=== PATIENT | female | born 1970 | race African-American/Black ===

== ENCOUNTER 2017-12-06 19:44 | Inpatient (IN) | payer OTHER ==
[~2017-12-06] VITALS: Ht 157.5 cm; Wt 77.1 kg
[2017-12-06 20:00] VITALS: BP 155/84
[2017-12-06 20:44] LABS: BILIRUBIN, URINE NEGATIVE (NEGATIVE); COLOR,URINE PALE YELLOW; GLUCOSE, URINE (UA) NEGATIVE (NEGATIVE); KETONES,URINE NEGATIVE (NEGATIVE); LEUKOCYTE ESTERASE ,URINE NEGATIVE (NEGATIVE); NITRITE,URINE NEGATIVE (NEGATIVE); PH,URINE 6 (4.5-8.0); PROTEIN,URINE NEGATIVE (NEGATIVE); UROBILINOGEN,URINE NORMAL MG/DL (0.0-1.0)
[2017-12-06 20:45] LABS: APPEARANCE,URINE CLEAR
[2017-12-06 20:48] LABS: HEMATOCRIT 19.8 % (37.0-47.0); HEMOGLOBIN 4.8 G/DL (12.0-16.0); MEAN CORPUSCULAR VOLUME 55 FL (80-99); PLATELET COUNT 121 K/UL (150-450); RED BLOOD COUNT 3.57 M/UL (4.20-5.40); RED CELL DISTRIBUTION WIDTH 19.9 % (11.6-14.8); WHITE BLOOD COUNT 6.9 K/UL (4.8-10.8)
[2017-12-06 21:06] LABS: ANION GAP 10 mmol/L (5-15); BLOOD UREA NITROGEN 10 mg/dL (7-18); CALCIUM 8.9 MG/DL (8.5-10.1); CARBON DIOXIDE 24 MMOL/L (21-32); CHLORIDE 105 MMOL/L (98-107); CREATININE 0.7 MG/DL (0.55-1.30); POTASSIUM 3.3 MMOL/L (3.5-5.1); SODIUM 139 MMOL/L (136-145)
[2017-12-06 21:11] LABS: ALANINE AMINOTRANSFERASE < 6 U/L (12-78); ALBUMIN/GLOBULIN RATIO 1.3 (1.0-2.7); ALKALINE PHOSPHATASE 51 U/L (46-116); ASPARTATE AMINO TRANSFERASE 13 U/L (15-37); BILIRUBIN,TOTAL 0.3 MG/DL (0.2-1.0)
--- NOTE | 2017-12-06 22:17 | Emergency Room Report ---
History of Present Illness General Chief Complaint: Abnormal Labs Source: Patient Present Illness HPI Patient is a 47-year-old female sent in by primary care physician after abnormal blood tests. Patient had noted be not been bleeding. She was noted to be anemic by primary care physician. Hemoglobin approximately 4.8 patient not been vomiting. She denies any black or bloody stools. She denies prior history of heavy periods. She states that she had not having any shortness of breath or chest pain. The patient states that she had history of fibroid uterus Allergies: Coded Allergies: No Known Allergies (Unverified , 12/06/17) Patient History Past Medical History: see triage record Last Menstrual Period: 11/13/17 Now: No Reviewed Nursing Documentation: PMH: Agreed, PSxH: Agreed Nursing Documentation-PMH Past Medical History: No History, Except For Hx Hypertension: Yes Review of Systems All Other Systems: negative except mentioned in HPI Physical Exam Vital Signs Date Time Temp Pulse Resp B/P (MAP) Pulse Ox O2 Delivery O2 Flow Rate FiO2 12/06/17 19:54 98.1 90 16 155/84 97 Room Air Sp02 EP Interpretation: reviewed, normal General Appearance: normal inspection, well appearing, no apparent distress, alert Head: atraumatic Eyes: bilateral eye conjunctivae pale ENT: normal ENT inspection, hearing grossly normal, normal voice, uvula midline , moist mucus membranes Neck: normal inspection, full range of motion, supple, no bony tend Respiratory: normal inspection, lungs clear, normal breath sounds, no respiratory distress, no retraction, no wheezing Cardiovascular #1: regular rate, rhythm, no edema Gastrointestinal: normal inspection, normal bowel sounds, non tender, soft, no guarding, no hernia Genitourinary: no CVA tenderness Musculoskeletal: normal inspection, back normal, normal range of motion Neurologic: normal inspection, alert, oriented x3, responsive, 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 Differential diagnosis included was not limited to anemia, urinary tract infection, electrolyte abnormality, hypothyroidism, myocardial infarction, myasthenia gravis, dehydration, among others. Because of complexity of patient's case laboratory testing and imaging studies were ordered. I laboratory studies showed evidence of the continued anemia with hemoglobin 4.8. The patient was noted to have a platelet count of 120s. The patient was noted to have a low MCV there may be some component of iron deficiency however given the patient's a low platelet count and previous low white blood count the patient likely requires more inpatient workup. The patient consented for blood. Dr. Jorge Stearns was contacted for inpatient management due to complexity of medical condition and panel physician. Labs Test 12/06/17 20:30 White Blood Count 6.9 K/UL (4.8-10.8) Red Blood Count 3.57 M/UL (4.20-5.40) Hemoglobin 4.8 G/DL (12.0-16.0) Hematocrit 19.8 % (37.0-47.0) Mean Corpuscular Volume 55 FL (80-99) Mean Corpuscular Hemoglobin 13.5 PG (27.0-31.0) Mean Corpuscular Hemoglobin Concent 24.4 G/DL (32.0-36.0) Red Cell Distribution Width 19.9 % (11.6-14.8) Platelet Count 121 K/UL (150-450) Mean Platelet Volume 5.2 FL (6.5-10.1) Neutrophils (%) (Auto) % (45.0-75.0) Lymphocytes (%) (Auto) % (20.0-45.0) Monocytes (%) (Auto) % (1.0-10.0) Eosinophils (%) (Auto) % (0.0-3.0) Basophils (%) (Auto) % (0.0-2.0) Differential Total Cells Counted 100 Neutrophils % (Manual) 47 % (45-75) Lymphocytes % (Manual) 49 % (20-45) Monocytes % (Manual) 2 % (1-10) Eosinophils % (Manual) 1 % (0-3) Basophils % (Manual) 1 % (0-2) Band Neutrophils 0 % (0-8) Platelet Estimate Decreased Platelet Morphology Normal Polychromasia 2+ Hypochromasia 4+ Anisocytosis 3+ Microcytosis 3+ Prothrombin Time 10.3 SEC (9.30-11.50) Prothromb Time International Ratio 1.0 (0.9-1.1) Activated Partial Thromboplast Time 26 SEC (23-33) Urine Color Pale yellow Urine Appearance Clear Urine pH 6 (4.5-8.0) Urine Specific [place] 1.015 (1.005-1.035) Urine Protein Negative (NEGATIVE) Urine Glucose (UA) Negative (NEGATIVE) Urine Ketones Negative (NEGATIVE) Urine Occult Blood Negative (NEGATIVE) Urine Nitrite Negative (NEGATIVE) Urine Bilirubin Negative (NEGATIVE) Urine Urobilinogen Normal MG/DL (0.0-1.0) Urine Leukocyte Esterase Negative (NEGATIVE) Urine RBC 0-2 /HPF (0 - 2) Urine WBC 0-2 /HPF (0 - 2) Urine Squamous Epithelial Cells Many /LPF (NONE/OCC) Urine Bacteria Few /HPF (NONE) Urine HCG, Qualitative Negative Sodium Level 139 MMOL/L (136-145) Potassium Level 3.3 MMOL/L (3.5-5.1) Chloride Level 105 MMOL/L (98-107) Carbon Dioxide Level 24 MMOL/L (21-32) Anion Gap 10 mmol/L (5-15) Blood Urea Nitrogen 10 mg/dL (7-18) Creatinine 0.7 MG/DL (0.55-1.30) Estimat Glomerular Filtration Rate > 60 mL/min (>60) Glucose Level 91 MG/DL (74-106) Calcium Level 8.9 MG/DL (8.5-10.1) Total Bilirubin 0.3 MG/DL (0.2-1.0) Aspartate Amino Transf (AST/SGOT) 13 U/L (15-37) Alanine Aminotransferase (ALT/SGPT) < 6 U/L (12-78) Alkaline Phosphatase 51 U/L (46-116) Total Protein 7.2 G/DL (6.4-8.2) Albumin 4.0 G/DL (3.4-5.0) Globulin 3.2 g/dL Albumin/Globulin Ratio 1.3 (1.0-2.7) Last Vital Signs Date Time Temp Pulse Resp B/P (MAP) Pulse Ox O2 Delivery O2 Flow Rate FiO2 12/06/17 19:54 98.1 90 16 155/84 97 Room Air Status: improved Disposition: ADMITTED INPATIENT Condition: Serious Referrals: NOT CHOSEN IPA/,REFERRING (PCP) Sorin Mac Dec 06, 2017 22:17
[2017-12-06] MEDS ORDERED: Zolpidem 5mg tab ORAL PRN (22:45)
[2017-12-06] MEDS ORDERED: Morphine Sulfate 2mg/ml Inj IVP PRN (22:45)
[2017-12-06] MEDS ORDERED: Miralax 17gm pkt ORAL PRN (22:45)
[2017-12-06] MEDS ORDERED: Mylanta II UD 30ml ORAL PRN (22:45)
[2017-12-06] MEDS ORDERED: LORazepam Inj 2mg/ml 1ml IV PRN (22:45)
[2017-12-06 23:15] VITALS: BP 169/86
[2017-12-06 23:30] VITALS: BP 169/85
[2017-12-06 23:56] LABS: LACTATE DEHYDROGENASE 140 U/L (81-234)
[2017-12-06] MEDS ORDERED: NKM (23:56)
[2017-12-07] VITALS: BP 152/77
[2017-12-07 00:23] LABS: % IRON SATURATION 10 % (15-50); IRON 48 ug/dL (50-175); TOTAL IRON BINDING CAPACITY 501 ug/dL (250-450)
[2017-12-07 04:00] VITALS: BP 138/78
--- NOTE | 2017-12-07 07:09 | Consultation ---
History of Present Illness General Date patient seen: Dec 07, 2017 Chief Complaint: Abnormal Labs Referring physician: Dr. Stearns Reason for Consultation: inpatient management Present Illness HPI 47-year-old female sent in by primary care physician after abnormal blood tests. Her Hemoglobin approximately 4.8 . She denies any black or bloody stools. She denies prior history of heavy periods. She states that she had not having any shortness of breath or chest pain. The patient states that she had history of fibroid uterus. She is admitted to telemetry for further work up. Allergies: Coded Allergies: No Known Allergies (Unverified , 12/06/17) Medication History Scheduled No Known Medications* (NKM - No Known Medications*), 0 ., (Reported) Patient History Healthcare decision maker Resuscitation status Full Code Advanced Directive on File Review of Systems All Other Systems: negative except mentioned in HPI Physical Exam Physical Exam Narrative General Appearance: WD/WN HEENT: normocephalic, anicteric Respiratory/Chest: chest wall non-tender, lungs clear, normal breath sounds Breasts: no masses Cardiovascular: normal peripheral pulses, regularly irregular Abdomen: normal bowel sounds, soft, non tender Genitourinary: normal external genitalia Skin: no rash Last 24 Hour Vital Signs Date Time Temp Pulse Resp B/P (MAP) Pulse Ox O2 Delivery O2 Flow Rate FiO2 12/07/17 04:00 98.5 84 18 138/78 98 Room Air 12/07/17 04:00 76 12/07/17 00:30 98.7 85 18 169/85 97 Room Air 12/07/17 00:00 98.7 85 18 152/77 97 Room Air 12/06/17 23:30 98.7 85 18 169/85 97 Room Air 12/06/17 23:30 98.7 85 18 12/06/17 23:15 99.2 84 18 12/06/17 23:15 99.2 84 18 169/86 97 Room Air 12/06/17 20:00 98.1 16 155/84 97 Room Air 12/06/17 19:54 98.1 90 16 155/84 97 Room Air Intake and Output 12/06/17 12/07/17 19:00 07:00 Intake Total 0 ml Balance 0 ml Intake Oral 0 ml Laboratory Tests Test 12/06/17 20:30 White Blood Count 6.9 K/UL (4.8-10.8) Red Blood Count 3.57 M/UL (4.20-5.40) L Hemoglobin 4.8 G/DL (12.0-16.0) *L Hematocrit 19.8 % (37.0-47.0) L Mean Corpuscular Volume 55 FL (80-99) L Mean Corpuscular Hemoglobin 13.5 PG (27.0-31.0) L Mean Corpuscular Hemoglobin Concent 24.4 G/DL (32.0-36.0) L Red Cell Distribution Width 19.9 % (11.6-14.8) H Platelet Count 121 K/UL (150-450) L Mean Platelet Volume 5.2 FL (6.5-10.1) L Neutrophils (%) (Auto) % (45.0-75.0) Lymphocytes (%) (Auto) % (20.0-45.0) Monocytes (%) (Auto) % (1.0-10.0) Eosinophils (%) (Auto) % (0.0-3.0) Basophils (%) (Auto) % (0.0-2.0) Differential Total Cells Counted 100 Neutrophils % (Manual) 47 % (45-75) Lymphocytes % (Manual) 49 % (20-45) H Monocytes % (Manual) 2 % (1-10) Eosinophils % (Manual) 1 % (0-3) Basophils % (Manual) 1 % (0-2) Band Neutrophils 0 % (0-8) Platelet Estimate Decreased L Platelet Morphology Normal Polychromasia 2+ Hypochromasia 4+ Anisocytosis 3+ Microcytosis 3+ Erythrocyte Sedimentation Rate 14 MM/HR (0-20) Reticulocyte Count 2.0 % (0.0-2.0) Prothrombin Time 10.3 SEC (9.30-11.50) Prothromb Time International Ratio 1.0 (0.9-1.1) Activated Partial Thromboplast Time 26 SEC (23-33) Urine Color Pale yellow Urine Appearance Clear Urine pH 6 (4.5-8.0) Urine Specific [place] 1.015 (1.005-1.035) Urine Protein Negative (NEGATIVE) Urine Glucose (UA) Negative (NEGATIVE) Urine Ketones Negative (NEGATIVE) Urine Occult Blood Negative (NEGATIVE) Urine Nitrite Negative (NEGATIVE) Urine Bilirubin Negative (NEGATIVE) Urine Urobilinogen Normal MG/DL (0.0-1.0) Urine Leukocyte Esterase Negative (NEGATIVE) Urine RBC 0-2 /HPF (0 - 2) Urine WBC 0-2 /HPF (0 - 2) Urine Squamous Epithelial Cells Many /LPF (NONE/OCC) H Urine Bacteria Few /HPF (NONE) Urine HCG, Qualitative Negative Sodium Level 139 MMOL/L (136-145) Potassium Level 3.3 MMOL/L (3.5-5.1) L Chloride Level 105 MMOL/L (98-107) Carbon Dioxide Level 24 MMOL/L (21-32) Anion Gap 10 mmol/L (5-15) Blood Urea Nitrogen 10 mg/dL (7-18) Creatinine 0.7 MG/DL (0.55-1.30) Estimat Glomerular Filtration Rate > 60 mL/min (>60) Glucose Level 91 MG/DL (74-106) Calcium Level 8.9 MG/DL (8.5-10.1) Iron Level 48 ug/dL (50-175) L Total Iron Binding Capacity 501 ug/dL (250-450) H Percent Iron Saturation 10 % (15-50) L Unsaturated Iron Binding 453 ug/dL (112-346) H Total Bilirubin 0.3 MG/DL (0.2-1.0) Aspartate Amino Transf (AST/SGOT) 13 U/L (15-37) L Alanine Aminotransferase (ALT/SGPT) < 6 U/L (12-78) L Alkaline Phosphatase 51 U/L (46-116) Lactate Dehydrogenase 140 U/L (81-234) Total Protein 7.2 G/DL (6.4-8.2) Albumin 4.0 G/DL (3.4-5.0) Globulin 3.2 g/dL Albumin/Globulin Ratio 1.3 (1.0-2.7) Vitamin B12 Level 382 PG/ML (193-986) Folate 6.0 NG/ML (8.6-58.9) L Height (Feet): 5 Height (Inches): 2.00 Weight (Pounds): 170 Medications Current Medications Medications (Trade) Dose Ordered Sig/Portia Route PRN Reason Start Time Stop Time Status Last Admin Dose Admin Acetaminophen (Tylenol) 650 mg Q4H PRN ORAL fever 12/06/17 22:45 01/05/18 22:44 Al Hydroxide/Mg Hydroxide (Mylanta II) 30 ml Q6H PRN ORAL dyspepsia 12/06/17 22:45 01/05/18 22:44 Dextrose (Dextrose 50%) STAT PRN IV Hypoglycemia 12/06/17 22:45 01/05/18 22:44 Lorazepam (Ativan 2mg/ml 1ml) 0.5 mg Q4H PRN IV For Anxiety 12/06/17 22:45 12/13/17 22:44 Morphine Sulfate (Morphine Sulfate) 1 mg Q4H PRN IVP For Pain 12/06/17 22:45 12/13/17 22:44 Ondansetron HCl (Zofran) 4 mg Q6H PRN IVP Nausea & Vomiting 12/06/17 22:45 01/05/18 22:44 Polyethylene Glycol (Miralax) 17 gm HSPRN PRN ORAL Constipation 12/06/17 22:45 01/05/18 22:44 Zolpidem Tartrate (Ambien) 5 mg HSPRN PRN ORAL Insomnia 12/06/17 22:45 12/13/17 22:44 Assessment/Plan Problem List: (1) Symptomatic anemia ICD Codes: D64.9 - Anemia, unspecified SNOMED: 035254264 (2) Thrombocytopenia ICD Codes: D69.6 - Thrombocytopenia, unspecified SNOMED: 255501980 Assessment/Plan prbc prn stool for OB might need bone marrow biopsy if no source of bleeding found. MORENA TRIPP Dec 07, 2017 07:09
[2017-12-07 08:00] VITALS: BP 134/73
[2017-12-07 10:33] LABS: HEMATOCRIT 26.3 % (37.0-47.0); HEMOGLOBIN 7.5 G/DL (12.0-16.0); MEAN CORPUSCULAR VOLUME 65 FL (80-99); PLATELET COUNT 64 K/UL (150-450); RED BLOOD COUNT 4.03 M/UL (4.20-5.40); RED CELL DISTRIBUTION WIDTH 28.9 % (11.6-14.8); WHITE BLOOD COUNT 5.4 K/UL (4.8-10.8)
[2017-12-07 10:49] LABS: ALANINE AMINOTRANSFERASE 15 U/L (12-78); ALBUMIN 3.6 G/DL (3.4-5.0); ALBUMIN/GLOBULIN RATIO 1.3 (1.0-2.7); ALKALINE PHOSPHATASE 44 U/L (46-116); ANION GAP 6 mmol/L (5-15); ASPARTATE AMINO TRANSFERASE 15 U/L (15-37); BILIRUBIN,TOTAL 0.8 MG/DL (0.2-1.0); BLOOD UREA NITROGEN 7 mg/dL (7-18); CALCIUM 8.9 MG/DL (8.5-10.1); CARBON DIOXIDE 27 MMOL/L (21-32); CHLORIDE 107 MMOL/L (98-107); CREATININE 0.6 MG/DL (0.55-1.30); SODIUM 140 MMOL/L (136-145)
[2017-12-07 12:00] VITALS: BP_SYST 140; BP_SYST 155; BP_DIAS 90; BP_DIAS 96
[2017-12-07] MEDS ORDERED: Tubing Blood Filter IV ONE (13:43)
[2017-12-07] MEDS ORDERED: NS 500ML ONE (13:43)
[2017-12-07] MEDS ORDERED: Morphine Sulfate 2mg/ml Inj IVP PRN (14:00)
[2017-12-07] MEDS ORDERED: LORazepam Inj 2mg/ml 1ml IV PRN (16:00)
[2017-12-07] MEDS ORDERED: Mylanta II UD 30ml ORAL PRN (16:00)
[2017-12-07 16:40] VITALS: BP 162/91
--- NOTE | 2017-12-07 18:15 | History and Physical Report ---
DATE OF ADMISSION: 12/06/2017 TIME SEEN: 9 a.m. CONSULTANTS: 1. Carmina Hernandez M.D. 2. Dr. Baxter. CHIEF COMPLAINT: Severe anemia, weakness, and lethargy. BRIEF HISTORY: This is a 47-year-old female who presents to [place] last night with increased lethargy and weakness diagnosed with severe anemia 4.8 and was transfused, admitted to telemetry for further care. Currently, feeling little better, no complaint otherwise. REVIEW OF SYSTEMS: No chest pain. Slight short of breath. No nausea, vomiting, or diarrhea. PAST MEDICAL HISTORY: Includes fibroids. PAST SURGICAL HISTORY: None. MEDICATIONS: Tylenol, morphine, MiraLAX, Zofran, Ativan, Ambien, Mylanta, dextrose. ALLERGIES: Denies. SOCIAL HISTORY: No smoking, no alcohol, no intravenous drug abuse. FAMILY HISTORY: Noncontributory. PHYSICAL EXAMINATION: GENERAL: Calm in bed, oriented x3, no acute distress. VITAL SIGNS: Temperature is 97, pulse 89, respiratory rate 17, blood pressure 137/73. CARDIOVASCULAR: No murmur. LUNGS: Distant and clear. ABDOMEN: Bowel sound positive. Nontender. Nondistended. EXTREMITIES: No cyanosis, clubbing, or edema. NEUROLOGIC: The patient moves all extremities, slightly weak. LABORATORY AND DIAGNOSTIC DATA: Hemoglobin was 4.8, platelets 121. Potassium 3.3. AST 13. INR is 1.0 and PTT is 26. Urinalysis is normal. ASSESSMENT: 1. Fibroids. 2. Anemia. PLAN: 1. Continue premeds. 2. Replace potassium. 3. CBC and BMP in morning. 4. Transfuse. 5. Dr. Baxter and Dr. Hernandez to consult. 6. We will continue to follow this patient. Jorge Stearns D.O. DR: Kyrie JOB#: [id number] CC:
[2017-12-07 20:00] VITALS: BP 153/89
[2017-12-07] MEDS ORDERED: Zolpidem 5mg tab ORAL PRN (21:00)
[2017-12-07] MEDS ORDERED: Iron Sucrose 100 MG in NS 55 ML IV SCH ×4 (21:00)
[2017-12-07] MEDS ORDERED: Miralax 17gm pkt ORAL PRN (21:00)
[2017-12-08] VITALS: BP 149/89
[2017-12-08 04:00] VITALS: BP 149/78
--- NOTE | 2017-12-08 07:39 | General Progress Note ---
Assessment/Plan Problem List: (1) Thrombocytopenia ICD Codes: D69.6 - Thrombocytopenia, unspecified SNOMED: 844741869 (2) Severe anemia ICD Codes: D64.9 - Anemia, unspecified SNOMED: 331813301 (3) Symptomatic anemia ICD Codes: D64.9 - Anemia, unspecified SNOMED: 614623949 Status: doing well, stable, progressing Assessment/Plan cbc bmp am transfuse prn dc if clear by heme Subjective Constitutional: Reports: weakness Allergies: Coded Allergies: No Known Allergies (Unverified , 12/06/17) All Systems: reviewed and negative except above Subjective felling better Objective Last 24 Hour Vital Signs Date Time Temp Pulse Resp B/P (MAP) Pulse Ox O2 Delivery O2 Flow Rate FiO2 12/08/17 04:00 98.0 72 21 149/78 98 12/08/17 00:00 98.2 74 21 149/89 98 12/07/17 20:00 98.4 77 21 153/89 100 12/07/17 16:40 98.1 78 18 162/91 99 12/07/17 12:00 98.1 69 18 140/90 99 Room Air 12/07/17 12:00 97.7 72 20 155/96 72 12/07/17 08:00 97.9 79 17 134/73 100 Room Air 12/07/17 08:00 79 Intake and Output 12/07/17 12/08/17 19:00 07:00 Intake Total 510 ml 240 ml Balance 510 ml 240 ml Intake Oral 240 ml 240 ml Blood Product 270 ml # Voids 1 # Bowel Movements 1 Laboratory Tests 12/07/17 09:00: White Blood Count 5.4, Red Blood Count 4.03L, Hemoglobin 7.5#L, Hematocrit 26.3# L, Mean Corpuscular Volume 65#L, Mean Corpuscular Hemoglobin 18.6L, Mean Corpuscular Hemoglobin Concent 28.5L, Red Cell Distribution Width 28.9H, Platelet Count 64L, Mean Platelet Volume 4.9L, Neutrophils (%) (Auto) , Lymphocytes (%) (Auto) , Monocytes (%) (Auto) , Eosinophils (%) (Auto) , Basophils (%) (Auto) , Differential Total Cells Counted 100, Neutrophils % ( Manual) 56, Lymphocytes % (Manual) 29, Monocytes % (Manual) 10, Eosinophils % ( Manual) 4H, Basophils % (Manual) 1, Band Neutrophils 0, Platelet Estimate DecreasedL, Platelet Morphology Normal, Hypochromasia 2+, Anisocytosis 3+, Microcytosis 3+, Hemoglobin A [Pending], Hemoglobin A2 [Pending], Hemoglobin C [ Pending], Hemoglobin F () [Pending], Hemoglobin S [Pending], Variant Hemoglobin [Pending], Hemoglobin Electrophoresis Interp [Pending], Hemoglobin Interpretation [Pending], Hemoglobin Solubility [Pending], Prothrombin Time 10.5 , Prothromb Time International Ratio 1.0, Activated Partial Thromboplast Time 27 , Sodium Level 140, Potassium Level 4.0, Chloride Level 107, Carbon Dioxide Level 27, Anion Gap 6, Blood Urea Nitrogen 7, Creatinine 0.6, Estimat Glomerular Filtration Rate > 60, Glucose Level 83, Calcium Level 8.9, Ferritin 4L, Total Bilirubin 0.8, Aspartate Amino Transf (AST/SGOT) 15, Alanine Aminotransferase (ALT/SGPT) 15, Alkaline Phosphatase 44L, Total Protein 6.4, Albumin 3.6, Globulin 2.8, Albumin/Globulin Ratio 1.3, Thyroid Stimulating Hormone (TSH) 2.510 12/07/17 18:07: Stool Occult Blood [Pending] Height (Feet): 5 Height (Inches): 2.00 Weight (Pounds): 170 General Appearance: alert EENT: normal ENT inspection Neck: normal alignment Cardiovascular: normal peripheral pulses, normal rate, regular rhythm Respiratory/Chest: chest wall non-tender, lungs clear, normal breath sounds Abdomen: normal bowel sounds, non tender, soft Extremities: normal inspection Edema: no edema noted Arm (L), no edema noted Arm (R), no edema noted Leg (L), no edema noted Leg (R), no edema noted Pedal (L), no edema noted Pedal (R), no edema noted Generalized Neurologic: responsive, motor weakness Skin: normal pigmentation, warm/dry IGLESIA WOODS Dec 08, 2017 07:39
[2017-12-08 07:56] LABS: HEMATOCRIT 29.7 % (37.0-47.0); HEMOGLOBIN 8.7 G/DL (12.0-16.0); MEAN CORPUSCULAR VOLUME 69 FL (80-99); PLATELET COUNT 50 K/UL (150-450); RED BLOOD COUNT 4.34 M/UL (4.20-5.40); RED CELL DISTRIBUTION WIDTH 29.2 % (11.6-14.8); WHITE BLOOD COUNT 6.1 K/UL (4.8-10.8)
[2017-12-08 08:00] VITALS: BP 158/61
[2017-12-08 08:33] LABS: ALANINE AMINOTRANSFERASE 12 U/L (12-78); ALBUMIN 3.4 G/DL (3.4-5.0); ALBUMIN/GLOBULIN RATIO 1.3 (1.0-2.7); ALKALINE PHOSPHATASE 45 U/L (46-116); ANION GAP 8 mmol/L (5-15); ASPARTATE AMINO TRANSFERASE 11 U/L (15-37); BILIRUBIN,TOTAL 0.6 MG/DL (0.2-1.0); BLOOD UREA NITROGEN 10 mg/dL (7-18); CALCIUM 8.9 MG/DL (8.5-10.1); CARBON DIOXIDE 25 MMOL/L (21-32); CHLORIDE 108 MMOL/L (98-107); CREATININE 0.6 MG/DL (0.55-1.30); PHOSPHORUS 3.5 MG/DL (2.5-4.9); POTASSIUM 3.8 MMOL/L (3.5-5.1); SODIUM 141 MMOL/L (136-145)
--- NOTE | 2017-12-08 11:21 | Pulmonology Progress Note ---
Assessment/Plan Problems: (1) Symptomatic anemia (2) Thrombocytopenia Assessment/Plan hem up to 8 finished 4 units of prbc ? etiology of low PLT. Subjective ROS Limited/Unobtainable: No Constitutional: Reports: no symptoms HEENT: Repors: no symptoms Respiratory: Reports: no symptoms Allergies: Coded Allergies: No Known Allergies (Unverified , 12/06/17) Objective Last 24 Hour Vital Signs Date Time Temp Pulse Resp B/P (MAP) Pulse Ox O2 Delivery O2 Flow Rate FiO2 12/08/17 08:00 97.8 74 21 158/61 99 12/08/17 04:00 98.0 72 21 149/78 98 12/08/17 00:00 98.2 74 21 149/89 98 12/07/17 20:00 98.4 77 21 153/89 100 12/07/17 16:40 98.1 78 18 162/91 99 12/07/17 12:00 98.1 69 18 140/90 99 Room Air 12/07/17 12:00 97.7 72 20 155/96 72 Intake and Output 12/07/17 12/08/17 19:00 07:00 Intake Total 510 ml 240 ml Balance 510 ml 240 ml Intake Oral 240 ml 240 ml Blood Product 270 ml # Voids 1 # Bowel Movements 1 General Appearance: WD/WN HEENT: normocephalic, atraumatic Respiratory/Chest: chest wall non-tender, lungs clear Abdomen: normal bowel sounds, soft, non tender Extremities: no cyanosis Skin: no rash Laboratory Tests 12/07/17 18:07: Stool Occult Blood Negative 12/08/17 06:48: White Blood Count 6.1, Red Blood Count 4.34, Hemoglobin 8.7L, Hematocrit 29.7L, Mean Corpuscular Volume 69L, Mean Corpuscular Hemoglobin 20.1L, Mean Corpuscular Hemoglobin Concent 29.3L, Red Cell Distribution Width 29.2H, Platelet Count 50L, Mean Platelet Volume 6.2L, Neutrophils (%) (Auto) , Lymphocytes (%) (Auto) , Monocytes (%) (Auto) , Eosinophils (%) (Auto) , Basophils (%) (Auto) , Differential Total Cells Counted 100, Neutrophils % ( Manual) 65, Lymphocytes % (Manual) 33, Monocytes % (Manual) 2, Eosinophils % ( Manual) 0, Basophils % (Manual) 0, Band Neutrophils 0, Platelet Estimate DecreasedL, Platelet Morphology Normal, Hypochromasia 2+, Anisocytosis 2+, Microcytosis 2+, Erythrocyte Sedimentation Rate 5, Sodium Level 141, Potassium Level 3.8, Chloride Level 108H, Carbon Dioxide Level 25, Anion Gap 8, Blood Urea Nitrogen 10, Creatinine 0.6, Estimat Glomerular Filtration Rate > 60, Glucose Level 78, Calcium Level 8.9, Phosphorus Level 3.5, Magnesium Level 1.7L , Total Bilirubin 0.6, Aspartate Amino Transf (AST/SGOT) 11L, Alanine Aminotransferase (ALT/SGPT) 12, Alkaline Phosphatase 45L, C-Reactive Protein, Quantitative 0.6, Total Protein 6.1L, Albumin 3.4, Globulin 2.7, Albumin/ Globulin Ratio 1.3 Current Medications Medications (Trade) Dose Ordered Sig/Portia Route PRN Reason Start Time Stop Time Status Last Admin Dose Admin Acetaminophen (Tylenol) 650 mg Q4H PRN ORAL fever 12/07/17 14:00 01/05/18 13:59 Al Hydroxide/Mg Hydroxide (Mylanta II) 30 ml Q6H PRN ORAL dyspepsia 12/07/17 16:00 01/05/18 15:59 Dextrose (Dextrose 50%) STAT PRN IV Hypoglycemia 12/07/17 14:00 01/05/18 13:59 Folic Acid (Folate) 1 mg DAILY ORAL 12/08/17 09:00 01/07/18 08:59 12/08/17 10:09 Iron Sucrose 100 mg/Sodium Chloride 60 ml @ 240 mls/hr BEDTIME IV 12/07/17 21:00 12/11/17 21:01 Lorazepam (Ativan 2mg/ml 1ml) 0.5 mg Q4H PRN IV For Anxiety 12/07/17 16:00 12/13/17 15:59 Morphine Sulfate (Morphine Sulfate) 1 mg Q4H PRN IVP For Pain 12/07/17 14:00 12/13/17 13:59 Ondansetron HCl (Zofran) 4 mg Q6H PRN IVP Nausea & Vomiting 12/07/17 16:00 01/05/18 15:59 Polyethylene Glycol (Miralax) 17 gm HSPRN PRN ORAL Constipation 12/07/17 21:00 01/05/18 20:59 Zolpidem Tartrate (Ambien) 5 mg HSPRN PRN ORAL Insomnia 12/07/17 21:00 12/13/17 20:59 MORENA TRIPP Dec 08, 2017 11:21
[2017-12-08] MEDS ORDERED: FOLIC ACID1 MG ORAL (12:02)
[2017-12-08] MEDS ORDERED: FERROUS SULFAT325 MG ORAL (12:02)
--- NOTE | 2017-12-08 12:23 | Consultation ---
Consult Note Assessment/Plan Hematology Oncology Consultation Note DOS 12/07/17 ID 47-year-old female sent in by primary care physician after abnormal blood tests. Her Hemoglobin approximately 4.8 . She denies any black or bloody stools. She denies prior history of heavy periods. She states that she had not having any shortness of breath or chest pain. The patient states that she had history of fibroid uterus. She is admitted to telemetry for further work up. Anemia w/u has been reviewed and she was noted to be iron deficient. Iron has been started already, she would like to be discharged tomorrow. Allergies: No Known Allergies (Unverified , 12/06/17) No Known Medications* (NKM - No Known Medications*), 0 ., (Reported) Family hx: has been reviewed, no genetic causes of anemia noted ROS All Other Systems: negative except mentioned in HPI, 12 point ROS reviewed Physical Exam: General Appearance: WD/WN HEENT: normocephalic, anicteric Respiratory/Chest: chest wall non-tender, lungs clear, normal breath sounds Breasts: no masses Cardiovascular: normal peripheral pulses, regularly irregular Abdomen: normal bowel sounds, soft, non tender Genitourinary: normal external genitalia Skin: no rash Last 24 Hour Vital Signs Date Time Temp Pulse Resp B/P (MAP) Pulse Ox O2 Delivery O2 Flow Rate FiO2 12/07/17 04:00 98.5 84 18 138/78 98 Room Air 12/07/17 04:00 76 12/07/17 00:30 98.7 85 18 169/85 97 Room Air 12/07/17 00:00 98.7 85 18 152/77 97 Room Air 12/06/17 23:30 98.7 85 18 169/85 97 Room Air 12/06/17 23:30 98.7 85 18 12/06/17 23:15 99.2 84 18 12/06/17 23:15 99.2 84 18 169/86 97 Room Air 12/06/17 20:00 98.1 16 155/84 97 Room Air 12/06/17 19:54 98.1 90 16 155/84 97 Room Air Intake and Output 12/06/17 12/07/17 19:00 07:00 Intake Total 0 ml Balance 0 ml Intake Oral 0 ml Laboratory Tests Test 12/06/17 20:30 White Blood Count 6.9 K/UL (4.8-10.8) Red Blood Count 3.57 M/UL (4.20-5.40) L Hemoglobin 4.8 G/DL (12.0-16.0) *L Hematocrit 19.8 % (37.0-47.0) L Mean Corpuscular Volume 55 FL (80-99) L Mean Corpuscular Hemoglobin 13.5 PG (27.0-31.0) L Mean Corpuscular Hemoglobin Concent 24.4 G/DL (32.0-36.0) L Red Cell Distribution Width 19.9 % (11.6-14.8) H Platelet Count 121 K/UL (150-450) L Mean Platelet Volume 5.2 FL (6.5-10.1) L Neutrophils (%) (Auto) % (45.0-75.0) Lymphocytes (%) (Auto) % (20.0-45.0) Monocytes (%) (Auto) % (1.0-10.0) Eosinophils (%) (Auto) % (0.0-3.0) Basophils (%) (Auto) % (0.0-2.0) Differential Total Cells Counted 100 Neutrophils % (Manual) 47 % (45-75) Lymphocytes % (Manual) 49 % (20-45) H Monocytes % (Manual) 2 % (1-10) Eosinophils % (Manual) 1 % (0-3) Basophils % (Manual) 1 % (0-2) Band Neutrophils 0 % (0-8) Platelet Estimate Decreased L Platelet Morphology Normal Polychromasia 2+ Hypochromasia 4+ Anisocytosis 3+ Microcytosis 3+ Erythrocyte Sedimentation Rate 14 MM/HR (0-20) Reticulocyte Count 2.0 % (0.0-2.0) Prothrombin Time 10.3 SEC (9.30-11.50) Prothromb Time International Ratio 1.0 (0.9-1.1) Activated Partial Thromboplast Time 26 SEC (23-33) Urine Color Pale yellow Urine Appearance Clear Urine pH 6 (4.5-8.0) Urine Specific [place] 1.015 (1.005-1.035) Urine Protein Negative (NEGATIVE) Urine Glucose (UA) Negative (NEGATIVE) Urine Ketones Negative (NEGATIVE) Urine Occult Blood Negative (NEGATIVE) Urine Nitrite Negative (NEGATIVE) Urine Bilirubin Negative (NEGATIVE) Urine Urobilinogen Normal MG/DL (0.0-1.0) Urine Leukocyte Esterase Negative (NEGATIVE) Urine RBC 0-2 /HPF (0 - 2) Urine WBC 0-2 /HPF (0 - 2) Urine Squamous Epithelial Cells Many /LPF (NONE/OCC) H Urine Bacteria Few /HPF (NONE) Urine HCG, Qualitative Negative Sodium Level 139 MMOL/L (136-145) Potassium Level 3.3 MMOL/L (3.5-5.1) L Chloride Level 105 MMOL/L (98-107) Carbon Dioxide Level 24 MMOL/L (21-32) Anion Gap 10 mmol/L (5-15) Blood Urea Nitrogen 10 mg/dL (7-18) Creatinine 0.7 MG/DL (0.55-1.30) Estimat Glomerular Filtration Rate > 60 mL/min (>60) Glucose Level 91 MG/DL (74-106) Calcium Level 8.9 MG/DL (8.5-10.1) Iron Level 48 ug/dL (50-175) L Total Iron Binding Capacity 501 ug/dL (250-450) H Percent Iron Saturation 10 % (15-50) L Unsaturated Iron Binding 453 ug/dL (112-346) H Total Bilirubin 0.3 MG/DL (0.2-1.0) Aspartate Amino Transf (AST/SGOT) 13 U/L (15-37) L Alanine Aminotransferase (ALT/SGPT) < 6 U/L (12-78) L Alkaline Phosphatase 51 U/L (46-116) Lactate Dehydrogenase 140 U/L (81-234) Total Protein 7.2 G/DL (6.4-8.2) Albumin 4.0 G/DL (3.4-5.0) Globulin 3.2 g/dL Albumin/Globulin Ratio 1.3 (1.0-2.7) Vitamin B12 Level 382 PG/ML (193-986) Folate 6.0 NG/ML (8.6-58.9) L Current Medications Medications (Trade) Dose Ordered Sig/Portia Route PRN Reason Start Time Stop Time Status Last Admin Dose Admin Acetaminophen (Tylenol) 650 mg Q4H PRN ORAL fever 12/06/17 22:45 01/05/18 22:44 Al Hydroxide/Mg Hydroxide (Mylanta II) 30 ml Q6H PRN ORAL dyspepsia 12/06/17 22:45 01/05/18 22:44 Dextrose (Dextrose 50%) STAT PRN IV Hypoglycemia 12/06/17 22:45 01/05/18 22:44 Lorazepam (Ativan 2mg/ml 1ml) 0.5 mg Q4H PRN IV For Anxiety 12/06/17 22:45 12/13/17 22:44 Morphine Sulfate (Morphine Sulfate) 1 mg Q4H PRN IVP For Pain 12/06/17 22:45 12/13/17 22:44 Ondansetron HCl (Zofran) 4 mg Q6H PRN IVP Nausea & Vomiting 12/06/17 22:45 01/05/18 22:44 Polyethylene Glycol (Miralax) 17 gm HSPRN PRN ORAL Constipation 12/06/17 22:45 01/05/18 22:44 Zolpidem Tartrate (Ambien) 5 mg HSPRN PRN ORAL Insomnia 12/06/17 22:45 12/13/17 22:44 Assessment/Recs: # Anemia of iron deficiency - has been started on iron IV --> consider related to iron deficiency, continue iv iron x 5 days --> potentially related to fibroids, consider eval for obgyn # Thrombocytopenia - cause yet unknown and potentially related to medications --> plt goal is >20k --> consider bone marrow biopsy if does not improve --> consider to discharge and recheck in 2 days # Fibroid uterus consider f/u with ob-supervisory cbp officer # hypomagnesemia replete with mg Ray Baxter Dec 08, 2017 12:23
[2017-12-08] MEDS ORDERED: NS 275ml ONE (13:04)
[2017-12-08] MEDS ORDERED: Tubing IV Blood Pump IV ONE (13:04)
--- NOTE | 2017-12-08 21:31 | General Progress Note ---
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/u with ob-supervisor garment manufacturing # hypomagnesemia replete with mg Subjective Date patient seen: Dec 08, 2017 Constitutional: Denies: no symptoms, chills, diaphoresis, fever, malaise, weakness, other HEENT: Denies: no symptoms, eye pain, blurred vision, tearing, double vision, ear pain, ear discharge, nose pain, nose congestion, throat pain, throat swelling, mouth pain, mouth swelling, other Cardiovascular: Denies: no symptoms, chest pain, edema, irregular heart rate, lightheadedness, palpitations, syncope, other Respiratory: Denies: no symptoms, cough, orthopnea, shortness of breath, SOB with excertion, SOB at rest, sputum, stridor, wheezing, other Gastrointestinal/Abdominal: Denies: no symptoms, abdomen distended, abdominal pain, black stools, tarry stools, blood in stool, constipated, diarrhea, difficulty swallowing, nausea, poor appetite, poor fluid intake, rectal bleeding , vomiting, other Hematologic/Lymphatic: Reports: anemia Allergies: Coded Allergies: No Known Allergies (Unverified , 12/06/17) Subjective No major events. Stable. On antibiotic IV. Objective Last 24 Hour Vital Signs Date Time Temp Pulse Resp B/P (MAP) Pulse Ox O2 Delivery O2 Flow Rate FiO2 12/08/17 08:00 97.8 74 21 158/61 99 12/08/17 04:00 98.0 72 21 149/78 98 12/08/17 00:00 98.2 74 21 149/89 98 Intake and Output 12/07/17 12/08/17 19:00 07:00 Intake Total 510 ml 240 ml Balance 510 ml 240 ml Intake Oral 240 ml 240 ml Blood Product 270 ml # Voids 1 # Bowel Movements 1 Laboratory Tests 12/08/17 06:48: White Blood Count 6.1, Red Blood Count 4.34, Hemoglobin 8.7L, Hematocrit 29.7L, Mean Corpuscular Volume 69L, Mean Corpuscular Hemoglobin 20.1L, Mean Corpuscular Hemoglobin Concent 29.3L, Red Cell Distribution Width 29.2H, Platelet Count 50L, Mean Platelet Volume 6.2L, Neutrophils (%) (Auto) , Lymphocytes (%) (Auto) , Monocytes (%) (Auto) , Eosinophils (%) (Auto) , Basophils (%) (Auto) , Differential Total Cells Counted 100, Neutrophils % ( Manual) 65, Lymphocytes % (Manual) 33, Monocytes % (Manual) 2, Eosinophils % ( Manual) 0, Basophils % (Manual) 0, Band Neutrophils 0, Platelet Estimate DecreasedL, Platelet Morphology Normal, Hypochromasia 2+, Anisocytosis 2+, Microcytosis 2+, Erythrocyte Sedimentation Rate 5, Sodium Level 141, Potassium Level 3.8, Chloride Level 108H, Carbon Dioxide Level 25, Anion Gap 8, Blood Urea Nitrogen 10, Creatinine 0.6, Estimat Glomerular Filtration Rate > 60, Glucose Level 78, Calcium Level 8.9, Phosphorus Level 3.5, Magnesium Level 1.7L , Total Bilirubin 0.6, Aspartate Amino Transf (AST/SGOT) 11L, Alanine Aminotransferase (ALT/SGPT) 12, Alkaline Phosphatase 45L, C-Reactive Protein, Quantitative 0.6, Total Protein 6.1L, Albumin 3.4, Globulin 2.7, Albumin/ Globulin Ratio 1.3 Height (Feet): 5 Height (Inches): 2.00 Weight (Pounds): 170 General Appearance: no apparent distress EENT: normal ENT inspection Neck: normal alignment, supple Cardiovascular: normal rate Respiratory/Chest: lungs clear, normal breath sounds Abdomen: non tender, soft Ray Baxter Dec 08, 2017 21:31
--- NOTE | 2017-12-09 11:38 | Diagnostic Imaging Report ---
APPROVED REPORT CPT Code: 20812 Present Symptoms Lower Extremity Pain: Bilateral BILATERAL: Imaging reveals a patent deep venous system bilaterally. There is no evidence of thrombus within the femoral, popliteal or tibial segments. The greater saphenous veins are also within normal limits. Doppler indicates normal spontaneous flow within these segments.
--- NOTE | 2017-12-10 09:42 | Discharge Summary ---
Discharge Summary Hospital Course Date of Admission Dec 06, 2017 at 21:07 Date of Discharge Dec 08, 2017 at 13:05 Admitting Diagnosis severe anemia BLANCHE Colon is a 47 year old female who was admitted on Dec 06, 2017 at 21:07 for Severe Anemia Hospital Course dc summary #[id number] Discharge Condition Upon Discharge: stable Discharge Disposition Patient was discharged to Home (01) Discharge Diagnoses: Discharge Instructions Discharge Instructions Special Instructions I have been assigned to complete a D/C Summary on this account. I was not involved in the patient management Opal Sharma NP (Vanchtein) Dec 10, 2017 09:42
--- NOTE | 2017-12-12 15:45 | Discharge Summary 2 SIG ---
DATE OF ADMISSION: 12/06/2017 DATE OF DISCHARGE: 12/08/2017 REASON FOR ADMISSION: 47-year-old female with a history of hypertension and fibroid uterus presented to the emergency department for abnormal blood tests. According to the patient, the patient did not noted any acute bleeding. However, she was noted to be anemic by her primary care physician who referred her to emergency room for evaluation. Her hemoglobin was below 5. The patient denied any black or bloody stools. She denied prior history of heavy periods. No chest pain. No shortness of breath. Patient reported history of fibroid uterus. Upon evaluation in the emergency room, vital signs were stable. Blood pressure 155/84, pulse oximetry was 97% on room air. No leukocytosis. Hemoglobin was 4.8, hematocrit -19.8 with MCV of 55, and platelet count of 121. Urinalysis was negative for evidence of urinary tract infection, and urine test was negative. Potassium was 3.3 and other electrolytes were stable. The patient was admitted for severe anemia and thrombocytopenia. HOSPITAL COURSE: The patient admitted to telemetry floor. The patient was in sinus rhythm at all times. Potassium replaced as well as magnesium. Stool for occult blood was negative. Hematology consult was requested. The patient was on gentle IV hydration. The patient was started on the blood transfusion. The patient received a total of four units of packed red blood cells. Prior to discharge, hemoglobin- 8.7 and hematocrit- 29.7. Anemia workup was consistent with anemia of iron deficiency. The patient was started on the IV iron. Supplemental oxygen provided as needed to keep pulse oximetry above 92%. Pulmonary toilet was on standby as needed. Venous duplex bilateral lower extremities was negative. The patient also had a folic acid deficiency. Continue at home oral iron and folic acid supplements. Iron-deficiency anemia potentially related to fibroid uterus. Core Winder Machine Operator recommended to consider evaluation by INTERNAL AFFAIRS COMMANDER. Cause of thrombocytopenia was unknown, potentially related to medications. Platelet goal was to keep counts above 20. No need for blood transfusion at this time. Core Winder Machine Operator recommended to consider bone marrow biopsy if no improvement. He recommended discharge patient and recheck with primary care provider platelet count in two days. Prior to discharge, platelet count down to 50. No evidence of acute bleeding. INR stable -1.0. The patient was stable for discharge home. FINAL DIAGNOSES: 1. Severe symptomatic anemia. 2. Iron-deficiency anemia. 3. Fibroid uterus. 4. Thrombocytopenia. 5. Hypomagnesemia. DISCHARGE MEDICATIONS: See medication reconciliation list. DISCHARGE INSTRUCTIONS: The patient discharged home. Followup with the primary care provider in two days to recheck platelets. The patient was explained that she may need a bone marrow biopsy if platelets were trending down. The patient also explained that she needs evaluation by her INTERNAL AFFAIRS COMMANDER. The patient verbalized discharge instructions. Jorge Stearns D.O. I have been assigned to dictate discharge summary on this account and I was not involved in the patient's management. Opal WagonerMassena Memorial Hospitalmaría elena N.PCarolina DR: JURGEN JOB#: [id number] CC: JARED
--- NOTE | 2017-12-16 13:55 | Cardiology Report ---
APPROVED REPORT EKG Measurement Heart [id number] Normal sinus rhythm Possible Left atrial enlargement Nonspecific T wave abnormality Abnormal ECG
== END 2017-12-08 13:05 | disposition home or self-care (01) | DRG 812 ==
LOC: EMR 20:30 → 2E 21:07 → EDBEDREQ 21:18 → 2E 12-07 00:18 → 4E 12-07 12:03
PROC: 30233N1 Transfusion of Nonautologous Red Blood Cells into Peripheral Vein, Percutaneous Approach (ICD-10-PCS; principal; 2017-12-06)
DX: D50.9 Iron deficiency anemia, unspecified (principal); D69.6 Thrombocytopenia, unspecified; D25.9 Leiomyoma of uterus, unspecified; E83.42 Hypomagnesemia
CPT/HCPCS: 36415; 80053; 81001; 81025; 82270; 82378; 82607; 82728; 82746; 83020; 83540; 83550; 83615; 83735; 84100; 84443; 85007; 85025; 85044; 85060; 85610; 85651; 85730; 86140; 86850; 86900; 86901; 86920; 93005; 93970; 99285